=== PATIENT | female | born 1950 | race Caucasian/White ===

== ENCOUNTER 2017-10-01 17:20 | Emergency (ER) | END 2017-10-01 19:02 | disposition home or self-care (01) ==

== ENCOUNTER 2018-09-22 16:50 | Emergency (ER) | payer MEDICARE, OTHER ==
[~2018-09-22] VITALS: Ht 160 cm; Wt 69.9 kg
[~2018-09-22 16:50] MED LIST: AZIT250T PO; BENZ-6 PO; CETI10CA PO
[2018-09-22 16:56] VITALS: Ht 160 cm; Wt 69.9 kg
[2018-09-22] MEDS ORDERED: ONDANSETRON 4 MG INJ IV STA (20:46)
[2018-09-22] MEDS ORDERED: KETOROLAC 15 MG INJ IV STA (20:46)
[2018-09-22] MEDS ORDERED: SOD CHLORIDE 0.9% 1,000 ML IV STA (20:46)
[2018-09-22] MEDS ORDERED: CETI10TA19 PO (21:01)
[2018-09-22] MEDS ORDERED: METF500T24 PO (21:01)
[2018-09-22] MEDS ORDERED: CHOL100062 PO (21:03)
[2018-09-22] MEDS ORDERED: LOSA25TA12 PO (21:04)
[2018-09-22] MEDS ORDERED: SIMV20TA PO (21:05)
[2018-09-22] MEDS ORDERED: NAPR-985 PO (21:36)
--- NOTE | 2018-09-22 22:36 | ERD ---
ER Documentation Chief Complaint Chief Complaint R flank pain x 1 wk; (+)dysuria HPI 68-year-old woman complains of right flank pain times 1 week. The pain is been nonradiating and nonexertional, patient denies hematuria or dysuria (despite triage note). She denies fevers or chills, no weight loss, no chest pain or shortness of breath. Patient states she has had flank pain similar to this in the past that resolved spontaneously ROS All systems reviewed and are negative except as per history of present illness. Medications Home Meds Active Scripts Naproxen* (Naprosyn*) 500 Mg Tablet, 500 MG PO BID PRN for PAIN AND/OR INFLAMMATION, #30 TAB Prov:PAULETTE BERGERON MD 09/22/18 Reported Medications Simvastatin* (Zocor*) 20 Mg Tablet, 20 MG PO QHS, #30 TAB 09/22/18 Losartan Potassium* (Losartan Potassium*) 25 Mg Tablet, 25 MG PO DAILY, TAB 09/22/18 Cholecalciferol* (Vitamin D3*) 1,000 Unit Tablet, 3000 UNIT PO DAILY for FOR 3 MONTHS, TAB 09/22/18 Metformin Hcl* (Metformin Hcl*) 500 Mg Tablet, 500 MG PO WITH BREAKFAST, #30 TAB 09/22/18 Cetirizine Hcl* (Cetirizine Hcl*) 10 Mg Tablet, 10 MG PO DAILY, #30 TAB 09/22/18 Discontinued Scripts Benzonatate* (Tessalon Perle*) 100 Mg Capsule, 100 MG PO Q8H PRN for COUGH, #20 CAP Prov:CLARK HULL NP 10/01/17 Cetirizine Hcl* (Zyrtec*) 10 Mg Capsule, 10 MG PO DAILY, #30 TAB.CHEW Prov:CLARK HULL [employer]PLIANCE [employer]TER 10/01/17 Azithromycin* (Zithromax*) 250 Mg Tablet, 250 MG PO .ChetPACK DIRECTED, #6 TAB TAKE 500 MG (2 TABS) THE FIRST DAY THEN 250 MG (1 TAB) DAYS 2-5 Prov:CLARK HULL NP 10/01/17 Allergies Allergies: Coded Allergies: No Known Allergy (Unverified , 09/22/18) PMhx/Soc Hypertension, diabetes mellitus, dyslipidemia History of Surgery: No Anesthesia Reaction: No Hx Neurological Disorder: No Hx Respiratory Disorders: No Hx Cardiac Disorders: No Hx Psychiatric Problems: No Hx Miscellaneous Medical Probl: No Hx Alcohol Use: No Hx Substance Use: No Hx Tobacco Use: No Smoking Status: Never smoker FmHx Family History: No diabetes Physical Exam Vitals Vital Signs Date Temp Pulse Resp B/P (MAP) Pulse Ox O2 O2 Flow FiO2 Time Delivery Rate 09/22/18 98.1 69 19 134/88 99 16:56 (103) Physical Exam Const: Well-developed well-nourished woman, afebrile, mild discomfort Head: Atraumatic Eyes: Normal Conjunctiva ENT: Normal External Ears, Nose and Mouth. Neck: Full range of motion. No meningismus. Resp: Clear to auscultation bilaterally Cardio: Regular rate and rhythm, no murmurs Abd: Soft, non tender, non distended. Normal bowel sounds Skin: No petechiae or rashes Back: No midline or flank tenderness Ext: No cyanosis, or edema Neur: Awake and alert x3, no focal deficits or facial asymmetry Psych: Normal Mood and Affect Result Diagram: 09/22/18203809/22/182038 Results 24 hrs Laboratory Tests Test 09/22/18 20:39 White Blood Count 7.2 10^3/ul Red Blood Count 4.80 10^6/ul Hemoglobin 13.0 g/dl Hematocrit 41.5 % Mean Corpuscular Volume 86.5 fl Mean Corpuscular Hemoglobin 27.1 pg Mean Corpuscular Hemoglobin Concent 31.3 g/dl Red Cell Distribution Width 13.7 % Platelet Count 206 10^3/UL Mean Platelet Volume 10.7 fl Immature Granulocytes % 0.300 % Neutrophils % 49.7 % Lymphocytes % 39.6 % Monocytes % 7.5 % Eosinophils % 2.6 % Basophils % 0.3 % Nucleated Red Blood Cells % 0.0 /100WBC Immature Granulocytes # 0.020 10^3/ul Neutrophils # 3.6 10^3/ul Lymphocytes # 2.9 10^3/ul Monocytes # 0.5 10^3/ul Eosinophils # 0.2 10^3/ul Basophils # 0.0 10^3/ul Nucleated Red Blood Cells # 0.0 10^3/ul Urine Color YELLOW Urine Clarity SLIGHTLY CLOUDY Urine pH 5.0 Urine Specific Vivian 1.018 Urine Ketones NEGATIVE mg/dL Urine Nitrite NEGATIVE mg/dL Urine Bilirubin NEGATIVE mg/dL Urine Urobilinogen NEGATIVE mg/dL Urine Leukocyte Esterase NEGATIVE Andreea/ul Urine Microscopic RBC 1 /HPF Urine Microscopic WBC 1 /HPF Urine Mucus FEW /HPF Urine Hemoglobin NEGATIVE mg/dL Urine Glucose NEGATIVE mg/dL Urine Total Protein NEGATIVE mg/dl Sodium Level 143 mmol/L Potassium Level 3.7 mmol/L Chloride Level 101 mmol/L Carbon Dioxide Level 27 mmol/L Anion Gap 15 Blood Urea Nitrogen 16 mg/dl Creatinine 0.58 mg/dl Est Glomerular Filtrat Rate mL/min > 60 mL/min Glucose Level 86 mg/dl Calcium Level 9.7 mg/dl Total Bilirubin 0.3 mg/dl Direct Bilirubin 0.00 mg/dl Indirect Bilirubin 0.3 mg/dl Aspartate Amino Transf (AST/SGOT) 44 IU/L Alanine Aminotransferase (ALT/SGPT) 17 IU/L Alkaline Phosphatase 89 IU/L Total Protein 8.1 g/dl Albumin 4.8 g/dl Globulin 3.30 g/dl Albumin/Globulin Ratio 1.45 Lipase 85 U/L Current Medications Medications Dose Sig/Ariel Start Time Status Last (Trade) Ordered Route PRN Stop Time Admin Dose Reason Admin Sodium 1,000 ml @ Q1H STAT 09/22/18 DC 09/22/18 Chloride 1,000 mls/hr IV 20:46 20:56 09/22/18 21:45 Ondansetron 4 mg ONCE STAT 09/22/18 DC 09/22/18 HCl (Zofran IV 20:46 20:56 Inj) 09/22/18 20:48 Ketorolac 15 mg ONCE STAT 09/22/18 DC 09/22/18 Tromethamine IV 20:46 20:56 (Toradol) 09/22/18 20:48 Procedures/MDM IV line was established patient was placed on electronic device monitor rhythm strip revealed a sinus rhythm at about 80 bpm with upright P and T waves. Patient was afebrile I administered 1 L normal saline IV, Toradol 15 mg IV, Zofran 4 mg IV CBC and electrolytes were normal, liver function tests were normal, urine analysis was unremarkable CT scan of the abdomen and pelvis revealed small bowel ileus but no stones or infectious pathology noted. Please refer to radiologist dictation for full report. Patient's vital signs remained normal, her pain was controlled. She will be discharged with analgesics and recommendation for PMD follow-up. Differential diagnoses considered, included but not limited to acute coronary syndrome, pulmonary embolism, aortic dissection, abdominal aortic aneurysm, sepsis, stroke, meningitis, encephalitis, pneumonia, appendicitis, cholecystitis, bowel obstruction, pyelonephritis, nephrolithiasis, cystitis, as well as metabolic, hematologic, and electrolyte abnormalities. As well as abscess, cellulitis, fractures, and dislocations. Patient feels much better at this time, and vital signs are normal, symptoms have improved. I did give strict instructions to return to the ED if symptoms continue or worsen, patient will otherwise follow-up with primary care physician. Patient understood instructions and agreed to plan. Disclaimer: Inadvertent spelling and grammatical errors are likely due to EHR/dictation software use and do not reflect on the overall quality of patient care. Also, please note that the electronic time recorded on this note does not necessarily reflect the actual time of the patient encounter. Departure Diagnosis: Primary Impression: Flank pain Additional Impression: Ileus Condition: Good Patient Instructions: Flank Pain, Uncertain Cause PAULETTE BERGERON MD Sep 22, 2018 22:36
[2018-09-22 22:38] VITALS: BP 130/83; PULSE 76; RESP 16
== END 2018-09-22 22:40 | disposition home or self-care (01) ==
LOC: E/R 16:50
DX: K56.7 Ileus, unspecified (principal); I10 Essential (primary) hypertension; E11.9 Type 2 diabetes mellitus without complications; Z79.84 Long term (current) use of oral hypoglycemic drugs
CPT/HCPCS: 36415; 74176; 80053; 81001; 83690; 85025; 96374; 96375; 99285; J1885; J2405; J7030; 81003

== ENCOUNTER 2019-02-21 14:39 | Emergency (ER) | payer MEDICARE, OTHER ==
[~2019-02-21] VITALS: Ht 160 cm; Wt 78.0 kg
[~2019-02-21 14:39] MED LIST changes: -AZIT250T PO; -BENZ-6 PO; -CETI10CA PO; +CETI10TA19 PO; +CHOL100062 PO; +LOSA25TA12 PO; +METF500T24 PO; +NAPR-985 PO; +SIMV20TA PO
[2019-02-21 14:50] VITALS: Ht 160 cm; Wt 78.0 kg
[2019-02-21 16:29] VITALS: BP 122/78; PULSE 88; RESP 20
[2019-02-21] MEDS ORDERED: CIPR500T4 PO (16:30)
--- NOTE | 2019-02-21 16:33 | ERD ---
ER Documentation Chief Complaint Chief Complaint DIZZINESS, BODY ACHES, FEELS HOT, FRECUENT URINATION HPI 68-year-old female presents the emergency department with multiple complaints. She states she has itching around her eyes nonspecific body aches nonspecific dizziness and questionable frequent urination. She reports no back pain no vomiting. ROS All systems reviewed and are negative except as per history of present illness. Medications Home Meds Active Scripts Ciprofloxacin Hcl* (Ciprofloxacin Hcl*) 500 Mg Tablet, 500 MG PO BID for 7 Days, TAB Prov:KASIA SUAZO 02/21/19 Naproxen* (Naprosyn*) 500 Mg Tablet, 500 MG PO BID PRN for PAIN AND/OR INFLAMMATION, #30 TAB Prov:PAULETTE BERGERON MD 09/22/18 Reported Medications Simvastatin* (Zocor*) 20 Mg Tablet, 20 MG PO QHS, #30 TAB 09/22/18 Losartan Potassium* (Losartan Potassium*) 25 Mg Tablet, 25 MG PO DAILY, TAB 09/22/18 Cholecalciferol* (Vitamin D3*) 1,000 Unit Tablet, 3000 UNIT PO DAILY for FOR 3 MONTHS, TAB 09/22/18 Metformin Hcl* (Metformin Hcl*) 500 Mg Tablet, 500 MG PO WITH BREAKFAST, #30 TAB 09/22/18 Cetirizine Hcl* (Cetirizine Hcl*) 10 Mg Tablet, 10 MG PO DAILY, #30 TAB 09/22/18 Allergies Allergies: Coded Allergies: No Known Allergy (Unverified , 09/22/18) PMhx/Soc Medical and Surgical Hx: pt denies Medical Hx, pt denies Surgical Hx History of Surgery: No Anesthesia Reaction: No Hx Neurological Disorder: No Hx Respiratory Disorders: No Hx Cardiac Disorders: Yes (HTN) Hx Psychiatric Problems: No Hx Miscellaneous Medical Probl: Yes Hx Alcohol Use: No Hx Substance Use: No Hx Tobacco Use: No Smoking Status: Never smoker Physical Exam Vitals Vital Signs Date Temp Pulse Resp B/P (MAP) Pulse Ox O2 O2 Flow FiO2 Time Delivery Rate 02/21/19 100.8 88 20 122/78 98 Room Air 16:29 (93) 02/21/19 101.7 101 18 144/73 99 14:50 (96) Physical Exam GENERAL: The patient is well developed and appropriate for usual state of health in no apparent distress HEENT: Pupils equal, round, and reactive to light. EOMI. There is no scleral icterus. NECK: C-spine is soft and supple, there is no meningismus. There is no cervical lymphadenopathy. LUNGS: Clear to auscultation bilaterally. There are no rales, wheezes or rhonchi. HEART: Regular rate and rhythm, no murmurs, clicks, rubs or gallops. ABDOMEN: Soft, non-tender, non-distended. There are bowel sounds in all four quadrants. No rebound or guarding. No CVA tenderness EXTREMITIES: There is no peripheral cyanosis or edema. No focal swelling or erythema. NEURO: The patient moves all four extremities with 5/5 strength. Cranial nerves II - XII are intact. Normal gait. Alert and oriented SKIN: There is no apparent rash or petechiae. HEME/LYMPHATIC: There is no evidence of excessive bruising or lymphedema. PSYCHIATRIC: The patient does not appear anxious or depressed. Result Diagram: 02/21/19 1532 02/21/19 1532 Results 24 hrs Laboratory Tests Test 02/21/19 15:32 02/21/19 16:26 White Blood Count 12.0 10^3/ul Red Blood Count 4.65 10^6/ul Hemoglobin 12.7 g/dl Hematocrit 38.3 % Mean Corpuscular Volume 82.4 fl Mean Corpuscular Hemoglobin 27.3 pg Mean Corpuscular Hemoglobin Concent 33.2 g/dl Red Cell Distribution Width 14.0 % Platelet Count 177 10^3/UL Mean Platelet Volume 10.3 fl Immature Granulocytes % 0.200 % Neutrophils % 85.9 % Lymphocytes % 6.7 % Monocytes % 5.9 % Eosinophils % 1.2 % Basophils % 0.1 % Nucleated Red Blood Cells % 0.0 /100WBC Immature Granulocytes # 0.030 10^3/ul Neutrophils # 10.3 10^3/ul Lymphocytes # 0.8 10^3/ul Monocytes # 0.7 10^3/ul Eosinophils # 0.2 10^3/ul Basophils # 0.0 10^3/ul Nucleated Red Blood Cells # 0.0 10^3/ul Sodium Level 142 mmol/L Potassium Level 3.5 mmol/L Chloride Level 106 mmol/L Carbon Dioxide Level 26 mmol/L Anion Gap 10 Blood Urea Nitrogen 14 mg/dl Creatinine 1.02 mg/dl Est Glomerular Filtrat Rate mL/min 54 mL/min Glucose Level 127 mg/dl Calcium Level 9.1 mg/dl Troponin I < 0.012 ng/ml Bedside Urine pH (LAB) 7.0 Bedside Urine Protein (LAB) Trace Bedside Urine Glucose (UA) Negative Bedside Urine Ketones (LAB) Negative Bedside Urine Blood 2+ Bedside Urine Nitrite (LAB) Negative Bedside Urine Leukocyte Esterase (L 1+ Procedures/MDM Patient was taken to a room, seen and evaluated. Comfort measures were initiated. Diagnostic tests were ordered and reviewed. 3 LEAD RHYTHM STRIP: Normal sinus rhythm without ectopy EK lead EKG reviewed by myself: Normal Sinus Rhythm Normal [place] and intervals No ST elevation, depression, or T wave inversion Impression: Normal EKG RADIOLOGY: Reviewed with the radiologist REEVALUATION: 1630: Diagnostic tests were appreciated. Serial examinations of the patient showed that she remained nontoxic appearing. She remained with a normal blood pressure and remained hemodynamic is stable. MEDICAL DECISION MAKIN-year-old female presents with a fever with a number of nonspecific symptoms. Diagnostic work-up demonstrated evidence of urinary tract infection. However, she shows no clinical evidence of severe sepsis with a normal blood pressure normal heart rate. Patient has no other significant comorbid conditions based on clinical examination as well as lab tests with her blood sugar well controlled. At this time she appears to be clinically appropriate for outpatient management of her urinary tract infection. Departure Diagnosis: Primary Impression: Urinary tract infection Condition: Stable Patient Instructions: Understanding Urinary Tract Infections (UTIs) Additional Instructions: Consulte a malik mdico para el seguimiento segn lo discutido. Lleve joes antonio copia de los resultados de malik prueba, si corresponde, a esta visita de seguimiento. Consulte a malik mdico o regrese aqu si farida sntomas no mejoran isidro se esperaba. En cualquier momento, regrese al departamento de emergencias por cualquier cambio o empeoramiento en farida sntomas. KASIA SUAZO Feb 21, 2019 16:33
== END 2019-02-21 17:18 | disposition home or self-care (01) ==
LOC: E/R 14:39
DX: N39.0 Urinary tract infection, site not specified (principal); I10 Essential (primary) hypertension
CPT/HCPCS: 71045; 80048; 81003; 84484; 85025; 93005